=== PATIENT | female | born 1980 | race Caucasian/White ===

== ENCOUNTER 2017-09-08 09:23 | Emergency (ER) | payer BC, OTHER ==
[2017-09-08 09:35] VITALS: BP 143/85
--- NOTE | 2017-09-08 10:21 | UC ---
Back Pain HPI - HPI Summary HPI Summary: 37 y/o female presents to the urgent care c/o acute lower back pain s/p bending over to remove something from a dog pen. Pt reports pain is 7/10 sharp at times radiating to the left hip and left lower leg. Pt states she usually goes to the Quiropractor for this pain since she has Dx in the past w/ a disc compression on L-5.. However her Quiropractor recommended her to come here since he thinks it is the sciatic nerve and she can't be lifting boxes at work. Pt states she work in [employer] where she is constantly moving boxes. Pt denies tingling or numbness over the lower extremities, saddle anesthesia, urinary or fecal incontinence, urinary symptoms, SOB, chest pain, abdominal pain , N/V/D. Pt took 2 Aleve around 0600AM to alleviate symptoms - History of Current Complaint Chief Complaint: UCBackPain Stated Complaint: BACK PAIN Time Seen by Provider: 09/08/17 10:17 Hx Obtained From: Patient Hx Last Menstrual Period: 08/15/17 ?: No Onset/Duration: Sudden Onset, Lasting Days - 1 day, Still Present, Worse Since Timing: Constant Severity Initially: Moderate Severity Currently: Moderate Pain Intensity: 7 Pain Scale Used: 0-10 Numeric Back Pain: Is Discrete @ - left side of lower back, Radiates To - left hip and left lower leg Character: Sharp, Spasmodic Aggravating Factor(s): Movement, Bending Alleviating Factor(s): Rest, OTC Meds Associated Signs And Symptoms: Positive: Negative. Negative: Swelling, Fever, Weakness, Numbness, Tingling, Abdominal Pain, Flank Pain, Bladder Incontinence, Bowel Incontinence, Pain with Weight Bearing - Risk Factors AAA Risk Factors: Negative TAD Risk Factors: Negative Cauda Equina Risk Factors: Negative Epidural Abscess Risk Factors: Negative - Allergies/Home Medications Allergies/Adverse Reactions: Allergies Allergy/AdvReac Type Severity Reaction Status Date / Time amoxicillin Allergy Rash Verified 09/08/17 09:28 cefaclor [From Ceclor] Allergy Rash Verified 09/08/17 09:29 clavulanic acid Allergy Rash Verified 09/08/17 09:29 [From Augmentin] doxycycline Allergy Rash Verified 09/08/17 09:30 tramadol [From Ultram] Allergy Rash Verified 09/08/17 09:29 BEE STINGS Allergy Severe Anaphylatic Uncoded 11/23/14 13:25 Shock PMH/Surg Hx/FS Hx/Imm Hx Previously Healthy: Yes Other Endocrine History: Fibromyalgia - Surgical History Surgical History: Yes Surgery Procedure, Year, and Place: RIGHT KNEE SURGERY, X2 - Family History Known Family History: Positive: Hypertension - Social History Occupation: Employed Full-time Lives: With Family Alcohol Use: Occasionally Substance Use Type: None Smoking Status (MU): Never Smoked Tobacco Review of Systems Constitutional: Negative Skin: Negative Eyes: Negative ENT: Negative Respiratory: Negative Cardiovascular: Negative Gastrointestinal: Negative Genitourinary: Negative Motor: Decreased ROM - lower back Musculoskeletal: Decreased ROM - Lower back, Other: - acute lower back pain s/p bending Neurological: Negative Psychological: Negative Is Patient Immunocompromised?: No All Other Systems Reviewed And Are Negative: Yes Physical Exam - Summary Physical Exam Summary: Vital Signs Reviewed: Yes Appearance: Well-Appearing, Well-Nourished, obese female sitting in the examining table w/o any apparent distress. Eyes: Positive: Conjunctiva Clear - PERRLA, EOMI. ENT: Positive: Normal ENT inspection, Hearing grossly normal, Pharynx normal, TMs normal, Uvula midline Neck: Positive: Supple, Nontender, No Lymphadenopathy Respiratory: Positive: Chest non-tender, Lungs clear, Normal breath sounds, No respiratory distress Cardiovascular: Positive: RRR, No Murmur, Pulses Normal, Brisk Capillary Refill Abdomen Description: Positive: Nontender, No Organomegaly, Soft. Negative: CVA Tenderness (R), CVA Tenderness (L) Bowel Sounds: Positive: Present Musculoskeletal: Positive: Strength Intact, BACK: Patient walked into the urgent care room with symmetric ambulation, No signs of limping, antalgic, able to bear weight. No signs of trauma, No masses palpated. Point tenderness at the level of L5-S1 and left side para spinal muscle tenderness and spasm at this same level, No CVAT, no flank ecchymosis . No sacroiliac notch tenderness, No saddle anesthesia.ROM: limited due to pain, Straight Leg Raise: negative. Patellar reflexes: brisk, symmetric Muscle strength lower extremities. Dorsiflexion/ plantar flexion of ankles. Heel/ toe walk. Lower extremities: Femoral, popliteal, posterior tibial, and dorsalis pedis pulses WNL. Pt refuse rectal exam Neurological: Positive: Alert, Muscle Tone Normal Psychological Exam: Normal Skin Exam: Normal Triage Information Reviewed: Yes Vital Signs: Initial Vital Signs Temp 97.6 F 09/08/17 09:32 Pulse 78 09/08/17 09:32 Resp 16 09/08/17 09:32 BP 143/85 09/08/17 09:32 Pulse Ox 99 09/08/17 09:32 Back Pain Course/Dx - Course Course Of Treatment: 37 y/o female presents to the urgent care c/o acute lower back pain s/p bending over to remove something from a dog pen. Pt reports pain is 7/10 sharp at times radiating to the left hip and left lower leg. Pt states she usually goes to the Quiropractor for this pain since she has Dx in the past w/ a disc compression on L-5.. However her Quiropractor recommended her to come here since he thinks it is the sciatic nerve and she can't be lifting boxes at work. Pt states she work in [employer] where she is constantly moving boxes. Pt denies tingling or numbness over the lower extremities, saddle anesthesia, urinary or fecal incontinence, urinary symptoms, SOB, chest pain, abdominal pain, N/V/D.Pt took 2 Aleve around 0600AM to alleviate symptoms. Hx obtained. PE: Point tenderness at the level of the L5-S1 and left paraspinal muscle spasm at the same level on examination. Lumbosacral X-ray ordered, Impression: No acute osseous injury or disc compression observed. Pt Rx Naproxen PO, flexeril PO and given a PT referral. Patient was instructed to the f/u with orthopedic in 1 week if symptoms do not improve or worsen. Patient understands and agrees. Patient is able to ambulate freely w/o aid or limp.Pt's BP is elevated today advised to decrease salt in diet, monitor BP and f/u with PCP for further management.Plan of care was discussed with the patient and patient understands and agrees. All questions were answered at patient satisfaction. Pt left clinic hemodynamically stable. - Differential Dx/Diagnosis Differential Diagnosis/HQI/PQRI: Arthritis, Compressive Cord Syndrome, Herniated Disc, Renal Colic, Strain, Sprain, Other - UTI Provider Diagnoses: 1- Acute lower back pain. 2-Back spasm. 3-Elevated BP w/o Hx of HTN Discharge - Discharge Plan Condition: Stable Disposition: HOME Prescriptions: Cyclobenzaprine TAB* [Flexeril 10 MG TAB*] 10 mg PO TID PRN #15 tab PRN Reason: Spasms Naproxen Sodium [Naproxen Sodium 500 MG TAB] 500 mg PO BID #30 tab Patient Education Materials: Acute Low Back Pain (ED), Low-Sodium Diet (ED), Muscle Spasm (ED) Forms: *Work Release Referrals: Sully Meza MD [Primary Care Provider] - 1 Week Jovanni Thomas MD [Medical Doctor] - 1 Week Additional Instructions: 1- Please take Naproxen PO as directed after meals for pain. 2- Take Flexeril PO as directed for muscle spasm. Please do not drive while taking the medication. 3- Wear a back support. Avoid strenuous exercise of heavy lifting. 4- Please follow up with Orthopedic Dr thomas or your PCP in 1 week if not improvement of symptoms, for further management. 5-Your BP is elevated today. please decrease salt in your diet, monitor BP and if it continues to be elevated please f/u with your PCP for further management
--- NOTE | 2017-09-08 11:01 | RAD ---
INDICATION: Acute low back pain COMPARISON: November 12, 2012 TECHNIQUE: Routine PA, lateral, and oblique imaging was performed . FINDINGS: Bones: There are no acute bony findings. There are no significant osteoarthritic findings. Alignment: There is mild lumbar straightening. Disc spaces: The disc spaces are well-maintained Soft tissues: There are no soft tissue abnormalities. IMPRESSION: No acute findings or interval changes.
== END 2017-09-08 11:18 | disposition home or self-care (01) ==
LOC: UCEAST 09:23
DX: M54.5 Low back pain (principal); M62.830 Muscle spasm of back; R03.0 Elevated blood-pressure reading, without diagnosis of hypertension; Z88.3 Allergy status to other anti-infective agents; Z88.5 Allergy status to narcotic agent
CPT/HCPCS: 72110; 99212; G0463

== ENCOUNTER 2017-09-12 11:07 | Emergency (ER) | payer BC ==
[2017-09-12 11:30] VITALS: BP 138/86
--- NOTE | 2017-09-12 11:46 | UC ---
Back Pain HPI - HPI Summary HPI Summary: LEFT LOWER BACK PAIN X 5 DAYS WAS DIAGNOSED WITH SCIATICA MISSED 2 DAYS OF WORK FEELING MUCH BETTER TODAY , REQUESTING A NOTE TO RETURN BACK TO WORK WITH NO RESTRICTIONS - History of Current Complaint Chief Complaint: UCBackPain Stated Complaint: RTW NOTE Time Seen by Provider: 09/12/17 11:37 Hx Obtained From: Patient Hx Last Menstrual Period: 2.5 WKS AGO ?: No Onset/Duration: Gradual Onset, Lasting Days - 5, Resolved Timing: Constant, Lasting Days Severity Initially: Moderate Severity Currently: None Pain Intensity: 1 Character: Sharp Aggravating Factor(s): Movement Alleviating Factor(s): Rest, Heat Associated Signs And Symptoms: Positive: Negative, Tingling, Abdominal Pain. Negative: Fever, Weakness, Numbness - Allergies/Home Medications Allergies/Adverse Reactions: Allergies Allergy/AdvReac Type Severity Reaction Status Date / Time amoxicillin Allergy Rash Verified 09/12/17 11:21 cefaclor [From Ceclor] Allergy Rash Verified 09/12/17 11:21 clavulanic acid Allergy Rash Verified 09/12/17 11:21 [From Augmentin] doxycycline Allergy Rash Verified 09/12/17 11:21 tramadol [From Ultram] Allergy Rash Verified 09/12/17 11:21 BEE STINGS Allergy Severe Anaphylatic Uncoded 09/12/17 11:21 Shock Home Medications: Home Medications LORazepam TAB(*) [Ativan 0.5 MG TAB (*)] 0.5 mg PO TID PRN 09/12/17 [History Confirmed 09/12/17] Oxycodone HCl/Acetaminophen [Percocet] 1 tab PO Q4H PRN 09/12/17 [History Confirmed 09/12/17] PMH/Surg Hx/FS Hx/Imm Hx - Surgical History Surgical History: Yes Surgery Procedure, Year, and Place: RIGHT KNEE SURGERY, X2 - Family History Known Family History: Positive: Hypertension - Social History Alcohol Use: Occasionally Substance Use Type: None Smoking Status (MU): Never Smoked Tobacco Review of Systems Constitutional: Negative Skin: Negative Eyes: Negative ENT: Negative Is Patient Immunocompromised?: No All Other Systems Reviewed And Are Negative: Yes Physical Exam Triage Information Reviewed: Yes Appearance: Well-Appearing, No Pain Distress, Well-Nourished Vital Signs: Initial Vital Signs Temp 98.7 F 09/12/17 11:25 Pulse 83 09/12/17 11:25 Resp 18 09/12/17 11:25 BP 138/86 09/12/17 11:25 Pulse Ox 100 09/12/17 11:25 Vital Signs Reviewed: Yes ENT Exam: Normal ENT: Positive: Normal ENT inspection, Hearing grossly normal, Pharynx normal Neck exam: Normal Neck: Positive: Supple, Nontender, No Lymphadenopathy Respiratory: Positive: Chest non-tender, Lungs clear, Normal breath sounds, No respiratory distress Cardiovascular Exam: Normal Cardiovascular: Positive: RRR, No Murmur, Pulses Normal Abdominal Exam: Normal Abdomen Description: Positive: Soft, Guarding. Negative: CVA Tenderness (R), CVA Tenderness (L), Distended Bowel Sounds: Positive: Present Skin Exam: Normal Back Pain Course/Dx - Differential Dx/Diagnosis Provider Diagnoses: SCIATICA Discharge - Sign-Out/Discharge Documenting (check all that apply): Discharge - Discharge Plan Condition: Stable Disposition: HOME Discharge Disposition Comment: [id number] Patient Education Materials: Sciatica (ED) Forms: *Work Release Referrals: Non Staff,Doctor [Primary Care Provider] - If Needed - Billing Disposition and Condition Condition: STABLE Disposition: HOME
== END 2017-09-12 11:46 | disposition home or self-care (01) ==
LOC: UCCORT 11:07
DX: M54.30 Sciatica, unspecified side (principal); Z88.0 Allergy status to penicillin; Z88.8 Allergy status to other drugs, medicaments and biological substances; Z88.1 Allergy status to other antibiotic agents; Z91.030 Bee allergy status
CPT/HCPCS: 99211; G0463

== ENCOUNTER 2017-11-03 19:00 | Emergency (ER) | payer BC ==
[2017-11-03 19:11] VITALS: BP 141/88
--- NOTE | 2017-11-03 19:52 | UC ---
Lower Extremity/Ankle HPI - HPI Summary HPI Summary: 37 y/o female presents to the urgent care c/o left foot pain for the past 2 weeks. Pt reports she has Hx of Sciatica and has been getting Physical therapy. 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 Pain is 8/10 when she walks and it feels like walking on a pebble at the base of the left 2nd and 3rd toes, but when there is nothing there at touch. Pt denies numbness and tingling sensation over the left foot, calf pain, SOB, palpitations, chest pain, abdominal pain, N/ V/D. She has been taking Naproxen PO to alleviate symptoms. - History of Current Complaint Chief Complaint: UCLowerExtremity Stated Complaint: LEFT FOOT COMPLAINT Time Seen by Provider: 11/03/17 19:26 Hx Obtained From: Patient Hx Last Menstrual Period: 2.5 WKS AGO Onset/Duration: Gradual Onset, Lasting Weeks - 2 weeks, Still Present, Worse Since - last 3 days Severity Initially: Mild Severity Currently: Moderate Pain Intensity: 8 Pain Scale Used: 0-10 Numeric Aggravating Factor(s): Ambulation Alleviating Factor(s): Rest Able to Bear Weight: Yes - Risk Factors Gout Risk Factors: Negative DVT Risk Factors: Negative Septic Arthritis Risk Factor: Negative - Allergies/Home Medications Allergies/Adverse Reactions: Allergies Allergy/AdvReac Type Severity Reaction Status Date / Time amoxicillin Allergy Rash Verified 11/03/17 19:11 cefaclor [From Ceclor] Allergy Rash Verified 11/03/17 19:11 clavulanic acid Allergy Rash Verified 11/03/17 19:11 [From Augmentin] doxycycline Allergy Rash Verified 11/03/17 19:11 tramadol [From Ultram] Allergy Rash Verified 11/03/17 19:11 BEE STINGS Allergy Severe Anaphylatic Uncoded 11/03/17 19:11 Shock PMH/Surg Hx/FS Hx/Imm Hx Previously Healthy: Yes - Surgical History Surgical History: Yes Surgery Procedure, Year, and Place: RIGHT KNEE SURGERY, X2 - Family History Known Family History: Positive: Hypertension - Social History Occupation: Employed Full-time Lives: With Family Alcohol Use: Occasionally Substance Use Type: None Smoking Status (MU): Never Smoked Tobacco Review of Systems Constitutional: Negative Skin: Negative Eyes: Negative ENT: Negative Respiratory: Negative Cardiovascular: Negative Gastrointestinal: Negative Genitourinary: Negative Motor: Negative Neurovascular: Negative Musculoskeletal: Decreased ROM - left foot, Other: - left foot pain Neurological: Negative Psychological: Negative Is Patient Immunocompromised?: No All Other Systems Reviewed And Are Negative: Yes Physical Exam - Summary Physical Exam Summary: Vital Signs Reviewed: Yes General : well developed, well nourished female w/o any apparent distress Eyes: Positive: Conjunctiva Clear - PERRLA, EOMI ENT: Positive: Normal ENT inspection, Hearing grossly normal, Pharynx normal, TMs normal Neck: Positive: Supple, Nontender, No Lymphadenopathy Respiratory: Positive: Chest non-tender, Lungs clear, Normal breath sounds, No respiratory distress Cardiovascular: Positive: RRR, No Murmur, Pulses Normal Abdomen Description: Positive: Nontender, No Organomegaly, Soft. Negative: CVA Tenderness (R), CVA Tenderness (L) Bowel Sounds: Positive: Present Musculoskeletal: Positive: Strength Intact, ROM Intact, No Edema, Left Foot/ Toes: Pt is able to bear weight but ambulate w/o limping. LF foot :No surface trauma, ecchymosis, erythema, lesions, ulcers or break in skin integrity. The L foot is without obvious asymmetry or deformity when compared to the R foot. No bony step-off, Point tenderness to palpation over sole distal side of the 2nd and 3rd metatarsals, no swelling or erythema observed, no masses palpated around the area, no tenderness of hindfoot. FROM of the left foot plantar/ dorsiflexion, inversion/eversion. Distal motor and neurovascular status are intact. Neurological Exam: Normal Psychological Exam: Normal Skin Exam: Normal Triage Information Reviewed: Yes Vital Signs: Initial Vital Signs Temp 98.0 F 11/03/17 19:06 Pulse 83 11/03/17 19:06 Resp 18 11/03/17 19:06 BP 141/88 11/03/17 19:06 Pulse Ox 99 11/03/17 19:06 Lower Extremity Course/Dx - Course Course Of Treatment: 37 y/o female presents to the urgent care c/o left foot pain for the past 2 weeks. Pt reports she has Hx of Sciatica and has been getting Physical therapy. 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 Pain is 8/10 when she walks and it feels like walking on a pebble at the base of the left 2nd and 3rd toes, but when there is nothing there at touch. Pt denies numbness and tingling sensation over the left foot, calf pain, SOB, palpitations, chest pain, abdominal pain, N/V/D.She has been taking Naproxen PO to alleviate symptoms.. Hx obtained. LF foot X-ray ordered, Impression:normal radiograph of the left foot as perradiologist. There is an enthesophyte at the calcaneus tubercle, butthis is no the area of pain. Probably Metatarsalgia or it can be a Keys's neuroma. Pt's foot immobilized with thiago-bandage and given a post-op shoe to avoid flexion. Advised RICE, and Rx Naproxen PO for pain, If not improvement of symptoms to f/u with Orthopedic DR hardy referral for further evaluation and treatment. Pt's BP is elevated today advised to decrease salt in diet, monitor BP and f/u with PCP for further management. Pt understood and agreed with D/C instructions - Differential Dx/Diagnosis Differential Diagnosis/HQI/PQRI: Arthritis, Contusion, Fracture (Closed), Gout, Sciatica, Sprain, Strain, Tendonitis, Other - spurs Provider Diagnoses: 1- Left foot Metartarsalgia. 2- Elevated BP w/o Hx of HTN Discharge - Sign-Out/Discharge Documenting (check all that apply): Discharge/Admit/Transfer - D/C home - Discharge Plan Condition: Stable Disposition: HOME Patient Education Materials: Low-Sodium Diet (ED), Keys Neuroma (ED), Metatarsalgia (DC) Forms: *Work Release Referrals: [facility] [place] PHYSICIAN REFERRAL [Outside] - 1 Week Jovanni Cannon MD [Medical Doctor] - 1 Week Additional Instructions: 1-Please continue taking Naproxen PO as directed to alleviate pain and swelling. 2-Please keep your foot immobilized with the Thiago bandage and post-op shoe to avoid flexion. Avoid strenuous exercise or standing for long periods of time 3- Please f/u with your Orthopedic DR Cannon or your PCP in 1 week if not improvement of symptoms for further evaluation and treatment. 4- Your BP is elevated today. please decrease salt in your diet, monitor BP and if it continues to be elevated please f/u with your PCP for further management - Billing Disposition and Condition Condition: STABLE Disposition: HOME
--- NOTE | 2017-11-03 20:34 | RAD ---
INDICATION: Pain at the left second and third metatarsals without history of trauma COMPARISON: None. TECHNIQUE: 3 views of the left foot were obtained. FINDINGS: The adequately corticated bones are properly aligned. Joint spaces appear maintained. No fracture, dislocation or focal bony abnormality is seen. An enthesophyte is noted at the origin of the plantar fascia at the calcaneal tubercle. IMPRESSION: Normal radiograph of the left foot. If the patient's symptoms persist, follow-up imaging is recommended.
== END 2017-11-03 20:50 | disposition home or self-care (01) ==
LOC: UCEAST 19:00
DX: M77.42 Metatarsalgia, left foot (principal); R03.0 Elevated blood-pressure reading, without diagnosis of hypertension; Z88.1 Allergy status to other antibiotic agents; Z88.0 Allergy status to penicillin; Z88.8 Allergy status to other drugs, medicaments and biological substances
CPT/HCPCS: 99212; G0463

== ENCOUNTER 2019-07-08 13:15 | Emergency (ER) | payer BC, OTHER ==
[2019-07-08] MEDS ORDERED: Acetaminophen TAB* 325 MG PO ONE (14:55)
--- NOTE | 2019-07-08 14:57 | UC ---
Headache HPI - HPI Summary HPI Summary: Patient presents to urgent care reporting a headache since Monday. Patient states initially it was right prior to area. Patient states it has spread right parietal and partial frontal. Patient states it's worse when she sits up or stands up. Patient states Monday she had nausea and felt like her face was flushed with the day. Patient did not have emesis. Patient states it was low but better. Last night she took some naproxen. Patient states she will determine the morning it wasn't bad. Patient states the pain woke her up at 4 in the morning. Patient states this morning she took Tylenol 2 extra strength and went to work. Patient states at work she felt she was having difficulty focusing because of the headache. Patient states she took some Sudafed around 11:00 although she did not have congestion she thought maybe this was related. Patient reports driving here she felt sure sunglasses for some light sensitivity although it is overcast. No extremity weakness or paresthesia. Pt states she fels "flushed" today again "like my blood pressure is high" Patient without a history of headaches, migraine, sinus conditions. Patient without a history of stroke. Patient states she has had elevated and the blood pressure in the past but has never been started on medication. Patient came here when she left work today. Last period where half weeks ago states she is . Patient's medications presented in the EMR reviewed this visit. - History Of Current Complaint Chief Complaint: UCHeadache Stated Complaint: HEADACHE Time Seen by Provider: 07/08/19 14:28 Hx Obtained From: Patient Hx Last Menstrual Period: 1 week ago Currently Pain Is: Moderate Pain Intensity: 8 Pain Scale Used: 0-10 Numeric - Allergies/Home Medications Allergies/Adverse Reactions: Allergies Allergy/AdvReac Type Severity Reaction Status Date / Time amoxicillin Allergy Rash Verified 07/08/19 14:05 cefaclor [From Ceclor] Allergy Rash Verified 07/08/19 14:05 clavulanic acid Allergy Rash Verified 07/08/19 14:05 [From Augmentin] doxycycline Allergy Rash Verified 07/08/19 14:05 tramadol [From Ultram] Allergy Rash Verified 07/08/19 14:05 BEE STINGS Allergy Severe Anaphylatic Uncoded 07/08/19 14:05 Shock Home Medications: Home Medications Acetaminophen [Pain Reliever] 1,000 mg PO ONCE PRN 07/08/19 [History Confirmed 07/08/19] Chondroitin Sulfate A Sodium [Chondroitin Sulfate] 1 tab PO DAILY 07/08/19 [ History Confirmed 07/08/19] Methylsulfonylmethane [MSM] 1 tab PO DAILY 07/08/19 [History Confirmed 07/08/19] Multivitamin with Minerals [One Daily Energy] 1 tab PO DAILY 07/08/19 [History Confirmed 07/08/19] Pseudoephedrine HCl [Sudafed] 1 tab PO ONCE PRN 07/08/19 [History Confirmed ] Sambucol Elderberry 41 tab PO DAILY 07/08/19 [History Confirmed 07/08/19] PMH/Surg Hx/FS Hx/Imm Hx Previously Healthy: Yes - Surgical History Surgical History: Yes Surgery Procedure, Year, and Place: RIGHT KNEE SURGERY, X2 - Family History Known Family History: Positive: Hypertension, Non-Contributory - Social History Occupation: Employed Full-time Lives: With Family Alcohol Use: Occasionally Substance Use Type: None Smoking Status (MU): Never Smoked Tobacco Review of Systems All Other Systems Reviewed And Are Negative: Yes Constitutional: Positive: Negative Skin: Positive: Negative Eyes: Positive: Photophobia Gastrointestinal: Positive: Nausea Neurological: Positive: Headache Physical Exam - Summary Physical Exam Summary: Vital Signs Reviewed: Yes A+Ox3, no distress, Eyes: Conjunctiva Clear, ZOILA. EOM intact and full, mild photophobia with direct examination ENT: Hearing grossly normal TM x 2 clear, mmoist, uvula midline, no exudate, no erythema Neck: Positive: Supple Respiratory: Positive: No respiratory distress, No accessory muscle use + CTA throughout no w/r Cardiovascular: RRR nl s1, s2 no m/r CBT <2 sec abd soft + BS nt/nd no guarding, no distension Musculoskeletal Exam: Full AROM c spine without difficulty Full upper ext ROM and strength against resistance. CUEVAS x 4 without difficulty Strength Intact, ROM Intact Neurological: Positive: Alert, + sensation throughout. ambulatory without difficulty Psychological: Positive: Normal Response To examiner Skin: Positive: no rash, no ecchymosis Triage Information Reviewed: Yes Vital Signs: Initial Vital Signs Temp 98.3 F 07/08/19 14:01 Pulse 74 07/08/19 14:01 Resp 18 07/08/19 14:01 BP 152/106 07/08/19 14:01 Pulse Ox 100 07/08/19 14:01 Headache Course/Dx - Course Course Of Treatment: Patient presents to urgent care reporting had a persistent since Monday. Headache is worse when she stands up or when she squats down. Patient's taken naproxen and Tylenol and Sudafed with little improvement. No fevers or chills. Patient states she did strike her face is flushed and she has had nausea but no vomiting. Patient did work today but felt to difficulty concentrating because the headache. On exam vital show an elevated blood pressure. A manual blood pressure was even higher. Patient without any focal findings on exam other than some mild photophobia with direct eye exam. Recommend patient to the emergency department for further evaluation and treatment. Patient okay to go by private vehicle. I called and spoke to physician front desk assistant, Vicky Garcia in the ED who is aware patient coming. - Differential Dx/Diagnosis Provider Diagnosis: Headache, Hypertension Discharge ED - Sign-Out/Discharge Documenting (check all that apply): Patient Departure All imaging exams completed and their final reports reviewed: No Studies - Discharge Plan Condition: Stable Disposition: HOME-RECOMMEND TO ED Patient Education Materials: Acute Headache (ED), Hypertension (ED) Referrals: Yung Felix MD [Primary Care Provider] - Additional Instructions: The doctor that evaluated you today thinks that you need additional testing that can be completed the emergency department. It is recommended that you go directly to emergency department for further evaluation. This evaluation may include blood work or imaging. This testing will be directed and decided by the provider that evaluate you at the emergency department. If pain becomes worse, you feel lightheaded, you have uncontrolled vomiting, or you have any other concerns while you are being driven to emergency department as recommended to pullover and contact 911. - Billing Disposition and Condition Condition: STABLE Disposition: Home-Recommend to ED
[2019-07-08 15:00] VITALS: BP 182/112
== END 2019-07-08 15:05 | disposition home health service (06) ==
LOC: UCEAST 13:15
DX: R51 Headache (principal); I10 Essential (primary) hypertension; R11.0 Nausea; Z88.0 Allergy status to penicillin; Z88.1 Allergy status to other antibiotic agents; Z88.5 Allergy status to narcotic agent; Z91.030 Bee allergy status
CPT/HCPCS: 99201; A9270-GY; G0463

== ENCOUNTER 2019-07-08 16:25 | Emergency (ER) | payer OTHER ==
[2019-07-08] MEDS ORDERED: Labetalol IV* 5 MG/ML 20 ML VIAL IV PUSH ONE (17:33)
--- NOTE | 2019-07-08 17:39 | ED ---
Headache - HPI Summary HPI Summary: Pt is a 39 y/o F presenting to the ED with a chief complaint of a headache. Pt states she went to for a headache that shes had since 07/06/2019, and they found her blood pressure to be somewhat high. She occasionally gets migraines associated w/ her fibromyalgia, but this is different and only on the R side. She denies neck pain, fever, and nausea. FHx includes hypertension, hyperlipidemia, diabetes, CVA, NM, and cancer. - History Of Current Complaint Chief Complaint: EDHeadache Stated Complaint: HEADACHE/HIGH BLOOD PRESSURE Time Seen by Provider: 07/08/19 17:22 Hx Obtained From: Patient Hx Last Menstrual Period: 1 week ago Onset/Duration: Sudden Onset, Started days ago, Still Present Initially Headache Was: Moderate Currently Pain Is: Moderate Timing: Constant, Days Character: Migraine Location of Headache: Temporal - right Aggravating Factor: Nothing Allevating Factors: Nothing Associated Signs And Symptoms: Negative - Allergies/Home Medications Allergies/Adverse Reactions: Allergies Allergy/AdvReac Type Severity Reaction Status Date / Time amoxicillin Allergy Rash Verified 07/08/19 16:31 cefaclor [From Ceclor] Allergy Rash Verified 07/08/19 16:31 clavulanic acid Allergy Rash Verified 07/08/19 16:31 [From Augmentin] doxycycline Allergy Rash Verified 07/08/19 16:31 tramadol [From Ultram] Allergy Rash Verified 07/08/19 16:31 BEE STINGS Allergy Severe Anaphylatic Uncoded 07/08/19 14:05 Shock PMH/Surg Hx/FS Hx/Imm Hx Previously Healthy: Yes Endocrine/Hematology History: Denies: Hx Diabetes, Hx Thyroid Disease Cardiovascular History: Reports: Hx Hypertension Respiratory History: Denies: Hx Asthma, Hx Chronic Obstructive Pulmonary Disease (COPD) GI History: Denies: Hx Ulcer Musculoskeletal History: Reports: Hx Fibromyalgia Neurological History: Reports: Other Neuro Impairments/Disorders - HX COPMRESSED L5 - Surgical History Surgery Procedure, Year, and Place: RIGHT KNEE SURGERY, X2 - Immunization History Immunizations Up to Date: Yes Infectious Disease History: No Infectious Disease History: Denies: Hx Hepatitis, Hx Human Immunodeficiency Virus (HIV), History Other Infectious Disease, Traveled Outside the [place] in Last 30 Days - Family History Known Family History: Positive: Cardiac Disease, Hypertension, Diabetes - Social History Alcohol Use: Rare Hx Substance Use: No Substance Use Type: Reports: None Hx Tobacco Use: No Smoking Status (MU): Never Smoked Tobacco Review of Systems Negative: Fever Negative: Nausea Negative: Myalgia - neck pain Positive: Headache All Other Systems Reviewed And Are Negative: Yes Physical Exam - Summary Physical Exam Summary: VITAL SIGNS: Reviewed. GENERAL: Patient is a well-developed and nourished female who is lying comfortable in the stretcher. Patient is not in any acute respiratory distress. HEAD AND FACE: No signs of trauma. No ecchymosis, hematomas or skull depressions. No sinus tenderness.. EYES: PERRLA, EOMI x 2, No injected conjunctiva, no nystagmus. EARS: Hearing grossly intact. Ear canals and tympanic membranes are within normal limits. MOUTH: Oropharynx within normal limits. NECK: Supple, trachea is midline, no adenopathy, no JVD, no carotid bruit, no c- spine tenderness, neck with full ROM. CHEST: Symmetric, no tenderness at palpation. LUNGS: Clear to auscultation bilaterally. No wheezing or crackles. CVS: Regular rate and rhythm, S1 and S2 present, no murmurs or gallops appreciated. ABDOMEN: Soft, non-tender. No signs of distention. No rebound, no guarding, and no masses palpated. Bowel sounds are normal. EXTREMITIES: FROM in all major joints, no edema, no cyanosis or clubbing. NEURO: Alert and oriented x 3. No acute neurological deficits. Speech is normal and follows commands. SKIN: Dry and warm. Triage Information Reviewed: Yes Vital Signs On Initial Exam: Initial Vitals Temp Pulse Resp BP Pulse Ox 97.8 F 93 18 180/108 100 07/08/19 16:27 07/08/19 16:27 07/08/19 16:27 07/08/19 16:27 07/08/19 16:27 Vital Signs Reviewed: Yes Procedures - Sedation Patient Received Moderate/Deep Sedation with Procedure: No Diagnostics - Vital Signs Vital Signs Temp Pulse Resp BP Pulse Ox 07/08/19 17:36 85 159/115 100 07/08/19 17:34 176/118 07/08/19 16:27 97.8 F 93 18 180/108 100 - Laboratory Result Diagrams: 07/08/19 18:19 07/08/19 18:19 Lab Statement: Any lab studies that have been ordered have been reviewed, and results considered in the medical decision making process. - Radiology CXR Radiology Interpretation Completed By: ED Physician Summary of Radiographic Findings: No acute process. Pending official radiology report. Re-Evaluation - Re-Evaluation 1st re-eval Re-Evaluation Time: 20:05 Change: Improved Comment: Pt is completely asymptomatic, and requesting to go on blood pressure medications. Headache Course/Dx - Course Assessment/Plan: Pt is a 39 y/o F presenting to the ED with a chief complaint of a headache. Pt states she went to for a headache that shes had since 07/06, and they found her blood pressure to be somewhat high. She occasionally gets migraines associated w/ her fibromyalgia, but this is different and only on the R side. She denies neck pain, fever, and nausea. FHx includes hypertension, hyperlipidemia, diabetes, CVA, NM, and cancer. Patients blood work without any significant abnormality. In the ED course the patient seems to be hypertensive, therefore the patient was given labetalol. Patients blood pressure decreased. However, she continues to have headache. Pathology results without any significant abnormality. Patient was given IV fluids, Reglan, Benadryl, and Toradol for the pain. The patient was given these medications the symptoms resolved. At this point, I discussed all the findings and test results with the patient. Patient was instructed to return to the emergency room immediately if any of the symptoms return or worsen. Plan of care was discussed with the patient and patient understands and agrees. All questions were answered at patient satisfaction. Patient understands and agrees. Neurological exam before discharge: Patient is alert and oriented x 3. No acute neurological deficits. Patient's vital signs are stable. Patient is to follow up with CPP in the next 2 3 days. They understand and agree. The plan of care was discussed with the patient and patient understands and agrees with the plan of care. All questions were answered at patient satisfaction. There were no further complaints or concerns. - Diagnoses Differential Diagnosis/HQI/PQRI: Migraine, Sinus Headache, Tension Headache Provider Diagnoses: High blood pressure, Headache Discharge ED - Sign-Out/Discharge Documenting (check all that apply): Patient Departure - Discharge Plan Condition: Stable Disposition: HOME Prescriptions: Lisinopril TAB* [Prinivil TAB 5 MG*] 5 mg PO DAILY #15 tab Patient Education Materials: Hypertension (ED) Referrals: Yung Felix MD [Primary Care Provider] - Additional Instructions: Please take your prescribed medications as instructed. Follow up with your primary care provider within the next 1-3 days. Return to the emergency department with any new or worsening symptoms. - Billing Disposition and Condition Condition: STABLE Disposition: Home - Attestation Statements Document Initiated by Lizzibe: Yes Documenting Scribe: Yas Contreras Provider For Whom Viet is Documenting (Include Credential): Godfrey Martinez MD. Scribe Attestation: Yas Deng, [email or web address] for Godfrey Martinez MD. on 07/08/19 at 2040. Scribe Documentation Reviewed: Yes Provider Attestation: The documentation as recorded by the Yas meraz accurately reflects the service I personally performed and the decisions made by , Godfrey Martinez MD. Status of Scribe Document: Viewed
[2019-07-08 18:28] LABS: ABS Basophils 0.1 10^3/ul (0-0.2); ABS Eosinophils 0.1 10^3/ul (0-0.6); ABS Lymphocytes 2.8 10^3/ul (1.0-4.8); ABS Monocytes 0.6 10^3/ul (0-0.8); ABS Neutrophils 6.3 10^3/ul (1.5-7.7); Eosinophil % 0.8 %; Hematocrit 40 % (35-47); Hemoglobin 13.5 g/dL (12.0-16.0); Lymphocyte % 28.3 %; Mean Corpuscular HGB Conc 34 g/dL (31-36); Mean Corpuscular Hemoglobin 30 pg (27-31); Mean Corpuscular Volume 88 fL (80-97); Mean Platelet Volume 7.5 fL (7.4-10.4); Platelet Count 256 10^3/uL (150-450); Red Blood Count 4.51 10^6 /uL (3.70-4.87); Red Cell Distribution Width 14 % (10-15); White Blood Count 9.9 10^3/uL (3.5-10.8)
[2019-07-08 18:46] LABS: ALT 21 U/L (7-52); AST 14 U/L (13-39); Albumin 4.1 g/dL (3.2-5.2); Albumin/Globulin Ratio 1.6 (1-3); Alkaline Phosphatase 64 U/L (34-104); Anion Gap 5 mmol/L (2-11); BUN/Creatinine Ratio 8.2 (8-20); Blood Urea Nitrogen 7 mg/dL (6-24); CO2 Carbon Dioxide 29 mmol/L (22-32); Calcium 9.1 mg/dL (8.6-10.3); Chloride 106 mmol/L (101-111); Creatine Kinase 71 U/L (10-223); EGFR African American 90.1 (>60); EGFR Non-African American 74.5 (>60); Globulin 2.5 g/dL (2-4); Glucose 96 mg/dL (70-100); Potassium 3.5 mmol/L (3.5-5.0); Sodium 140 mmol/L (135-145); Total Protein 6.6 g/dL (6.4-8.9)
[2019-07-08 18:48] LABS: Troponin I 0.01 ng/mL (<0.03)
[2019-07-08 18:52] LABS: HCG Pregnancy < 0.60 mIU/mL
[2019-07-08] MEDS ORDERED: Ketorolac INJ* 30 MG/ML 1 ML VIAL IV PUSH ONE (19:04)
[2019-07-08] MEDS ORDERED: diPHENhydraMINE IV* 50 MG/ML 1 ml VIAL (BENADRYL) IV ONE (19:04)
[2019-07-08] MEDS ORDERED: Metoclopramide IV* 5 MG/ML 2 ML VIAL IV SLOW PU ONE (19:05)
[2019-07-08 19:50] LABS: TSH (Thyroid Stimulating Horm) 3.46 mcIU/mL (0.34-5.60)
[2019-07-08 20:15] VITALS: BP 136/82
== END 2019-07-08 20:15 | disposition home or self-care (01) ==
LOC: ED 16:25
DX: I10 Essential (primary) hypertension (principal); Z88.0 Allergy status to penicillin; Z88.1 Allergy status to other antibiotic agents; Z88.5 Allergy status to narcotic agent
CPT/HCPCS: 36415; 71045; 80053; 82550; 83880; 84443; 84484; 84702; 85025; 93005; 96374; 96375; 99283; J1200; J1885; J2765